=== PATIENT | male | born 1960 | race Caucasian/White ===

== ENCOUNTER 2017-03-01 18:21 | Emergency (ER) | payer OTHER ==
[~2017-03-01] VITALS: Ht 167.6 cm; Wt 113.4 kg
[2017-03-01] MEDS ORDERED: CARDIZEM CD180 MG PO (19:50)
[2017-03-01] MEDS ORDERED: ATORVASTATIN CA40 MG PO (19:50)
[2017-03-01] MEDS ORDERED: CLONAZEPAM 1 MG1 M1 PO (19:50)
[2017-03-01] MEDS ORDERED: BYSTOLIC 5 MG5 M1 PO (19:50)
[2017-03-01] MEDS ORDERED: LISINOPRIL20 MG PO (19:51)
[2017-03-01] MEDS ORDERED: CYMBALTA60 MG PO (19:51)
[2017-03-01] MEDS ORDERED: INVOKANA300 MG PO (19:51)
[2017-03-01] MEDS ORDERED: GLUCOTROL5 MG PO (19:51)
[2017-03-01] MEDS ORDERED: MOBIC15 MG PO (19:52)
[2017-03-01] MEDS ORDERED: MODAFINIL200 MG PO (19:52)
[2017-03-01] MEDS ORDERED: ATIVAN1 MG PO (19:52)
[2017-03-01] MEDS ORDERED: GLUCOPHAGE XR500 MG PO (19:52)
[2017-03-01] MEDS ORDERED: OXYCODONE HCL 55 MG PO (19:53)
[2017-03-01] MEDS ORDERED: CLEOCIN HCL150 MG PO (19:53)
[2017-03-01] MEDS ORDERED: PERCOCET 5-3251 EACH PO (20:49)
[2017-03-01 21:27] VITALS: BP 143/95
== END 2017-03-01 21:20 | disposition home or self-care (01) ==
LOC: ER 18:21
DX: S82.62XA Displaced fracture of lateral malleolus of left fibula, initial encounter for closed fracture (principal); E11.9 Type 2 diabetes mellitus without complications; Z98.890 Other specified postprocedural states; W18.39XA Other fall on same level, initial encounter; Y93.01 Activity, walking, marching and hiking; Y92.89 Other specified places as the place of occurrence of the external cause; Y99.8 Other external cause status

== ENCOUNTER → 2020-05-19 | Outpatient (CLI) | payer OTHER ==
[~2020-05-19] MED LIST: ATIVAN1 MG PO; ATORVASTATIN CA40 MG PO; BYSTOLIC 5 MG5 M1 PO; CARDIZEM CD180 MG PO; CLEOCIN HCL150 MG PO; CLONAZEPAM 1 MG1 M1 PO; CYMBALTA60 MG PO; GLUCOPHAGE XR500 MG PO; GLUCOTROL5 MG PO; INVOKANA300 MG PO; LISINOPRIL20 MG PO; MOBIC15 MG PO; MODAFINIL200 MG PO; OXYCODONE HCL 55 MG PO; PERCOCET 5-3251 EACH PO
== END ==
LOC: CAT 14:37
PROVIDERS: ATTEND Internal Medicine Cardiovascular Disease
DX: Z13.6 Encounter for screening for cardiovascular disorders (principal); I25.10 Atherosclerotic heart disease of native coronary artery without angina pectoris; E78.00 Pure hypercholesterolemia, unspecified

== ENCOUNTER → 2020-06-16 | Outpatient (CLI) | payer BC, OTHER | LOC: SJCVCIMAG 10:40 | PROVIDERS: ATTEND Internal Medicine Cardiovascular Disease | DX: I08.8 Other rheumatic multiple valve diseases (principal); I48.91 Unspecified atrial fibrillation; Z98.890 Other specified postprocedural states ==